=== PATIENT | female | born 1940 | race Asian ===

== ENCOUNTER 2022-04-21 12:05 | Inpatient (IN) | payer MEDICARE, OTHER ==
[~2022-04-21] VITALS: Ht 162.6 cm; Wt 50.3 kg
[2022-04-21] MEDS ORDERED: SODIUM CHLORIDE 0.9% 1,000 ML IV ONE (12:15)
[2022-04-21 12:43] LABS: BASOPHILS % 0.5 % (0.0-2.0); EOSINOPHILS % 0.6 % (0.0-5.0); HEMATOCRIT. 43.7 % (36.0-48.0); HEMOGLOBIN. 14.3 g/dL (12.0-16.0); LYMPHOCYTES % 8.1 % (20.0-50.0); MEAN CORPUSCULAR HEMOGLOBIN 30.9 pg (28.0-32.0); MEAN CORPUSCULAR VOLUME 94.4 fL (81.0-99.0); MEAN PLATELET VOLUME 6.6 fl (7.4-10.4); MONOCYTES % 7.9 % (2.0-8.0); NEUTROPHILS % 82.9 % (40.0-76.0); PLATELET 246 x1000/uL (130-400); RED BLOOD CELL COUNT 4.63 mill/uL (4.2-5.4); RED CELL DISTRIBUTION WIDTH 14.1 % (11.6-14.6)
[2022-04-21 12:48] LABS: CHLORIDE 105 mEq/L (98-107)
[2022-04-21 12:53] LABS: INR 1.1; PROTHROMBIN TIME 11.5 sec (9.6-11.0)
[2022-04-21 13:00] LABS: CREATINE KINASE 166 IU/L (26-192)
[2022-04-21 13:23] LABS: CLARITY URINE CLEAR (CLEAR); COLOR URINE YELLOW (YELLOW); KETONES URINE 2+ (NEGATIVE); LEUKOCYTE ESTERASE URINE NEGATIVE (NEGATIVE); NITRITE URINE NEGATIVE (NEGATIVE); OCCULT BLOOD URINE TRACE (NEGATIVE); PROTEIN URINE TRACE (NEGATIVE); SPECIFIC GRAVITY URINE 1.019 (1.005-1.030)
[2022-04-21] MEDS ORDERED: CLONIDINE 0.1MG TABLET PO PRN (14:30)
[2022-04-21] MEDS ORDERED: ACETAMINOPHEN 325MG TABLET PO PRN (14:30)
[2022-04-21] MEDS ORDERED: DIPHENHYDRAMINE 50MG/ML VIAL IV PRN (14:30)
[2022-04-21] MEDS ORDERED: IPRATROPIUM/ALBUTEROL 0.5-3(2.5)MG/3ML NEB HHN PRN (14:30)
[2022-04-21] MEDS ORDERED: ONDANSETRON HCL 4MG/2ML INJ IV PRN (14:30)
[2022-04-21] MEDS: ASPIRIN 81MG EC TABLET PO SCH (15:54)
[2022-04-21] MEDS ORDERED: NALOXONE HCL 0.4MG/ML VIAL IV PRN (16:45)
[2022-04-21 18:10] VITALS: BP 145/66
[2022-04-21] MEDS ORDERED: ASPI-1497 MT (19:23)
[2022-04-21 20:00] VITALS: BP 131/74
[2022-04-22] VITALS: BP 152/91
[2022-04-22 04:00] VITALS: BP 131/72
[2022-04-22 08:00] VITALS: BP 106/76
[2022-04-22] MEDS: ASPIRIN 81MG EC TABLET PO SCH (09:09)
[2022-04-22 11:15] LABS: HEMATOCRIT. 38.6 % (36.0-48.0); HEMOGLOBIN. 12.9 g/dL (12.0-16.0); MEAN CORPUSCULAR HEMOGLOBIN 31.1 pg (28.0-32.0); MEAN CORPUSCULAR VOLUME 93.4 fL (81.0-99.0); MEAN PLATELET VOLUME 6.8 fl (7.4-10.4); PLATELET 247 x1000/uL (130-400); RED BLOOD CELL COUNT 4.13 mill/uL (4.2-5.4); RED CELL DISTRIBUTION WIDTH 13.7 % (11.6-14.6)
[2022-04-22 11:24] LABS: CHLORIDE 101 mEq/L (98-107)
[2022-04-22] MEDS ORDERED: APIXABAN 5 MG TABLET PO SCH (11:45)
[2022-04-22 11:56] LABS: T4 FREE 1.39 ng/dL (0.76-1.46)
[2022-04-22 12:00] VITALS: BP 146/83
[2022-04-22] MEDS ORDERED: POTASSIUM CHLORIDE 20MEQ TABLET SR PO NR (12:15)
[2022-04-22] MEDS: HYDROCODONE/ACETAMINOPHEN 5/325MG TABLET PO PRN ×2 (13:08→21:32)
[2022-04-22 13:22] LABS: PLATELET ESTIMATE NORMAL
[2022-04-22 16:00] VITALS: BP 142/79
[2022-04-22 20:00] VITALS: BP 130/68
[2022-04-22] MEDS: METOPROLOL TARTRATE 25MG TABLET PO SCH (21:31)
[2022-04-23] VITALS (7 sets, daily range): BP systolic 85–150; BP diastolic 25–90
[2022-04-23] MEDS: ASPIRIN 81MG EC TABLET PO SCH (08:47)
[2022-04-23] MEDS: METOPROLOL TARTRATE 25MG TABLET PO SCH (08:47)
[2022-04-23] MEDS ORDERED: POTASSIUM CHLORIDE 20MEQ TABLET SR PO SCH (11:00)
[2022-04-23 11:24] LABS: BASOPHILS % 0.8 % (0.0-2.0); EOSINOPHILS % 4.5 % (0.0-5.0); HEMATOCRIT. 38.3 % (36.0-48.0); HEMOGLOBIN. 12.6 g/dL (12.0-16.0); MEAN CORPUSCULAR HEMOGLOBIN 31.3 pg (28.0-32.0); MEAN CORPUSCULAR VOLUME 94.8 fL (81.0-99.0); MEAN PLATELET VOLUME 6.8 fl (7.4-10.4); MONOCYTES % 10.5 % (2.0-8.0); NEUTROPHILS % 73.2 % (40.0-76.0); PLATELET 248 x1000/uL (130-400); RED BLOOD CELL COUNT 4.04 mill/uL (4.2-5.4); RED CELL DISTRIBUTION WIDTH 13.9 % (11.6-14.6)
[2022-04-23 13:07] LABS: CHLORIDE 103 mEq/L (98-107)
[2022-04-23] MEDS: AMLODIPINE 2.5MG TABLET PO SCH ×2 (15:07→16:42)
[2022-04-23 18:23] LABS: BASOPHILS % 0.9 % (0.0-2.0); EOSINOPHILS % 4.2 % (0.0-5.0); HEMATOCRIT. 38.9 % (36.0-48.0); HEMOGLOBIN. 13.1 g/dL (12.0-16.0); LYMPHOCYTES % 12.7 % (20.0-50.0); MEAN CORPUSCULAR HEMOGLOBIN 31.5 pg (28.0-32.0); MEAN CORPUSCULAR VOLUME 93.3 fL (81.0-99.0); MEAN PLATELET VOLUME 6.7 fl (7.4-10.4); MONOCYTES % 8.6 % (2.0-8.0); NEUTROPHILS % 73.6 % (40.0-76.0); PLATELET 263 x1000/uL (130-400); RED BLOOD CELL COUNT 4.17 mill/uL (4.2-5.4); RED CELL DISTRIBUTION WIDTH 14.2 % (11.6-14.6)
[2022-04-23 18:35] LABS: CHLORIDE 105 mEq/L (98-107)
[2022-04-24] VITALS: BP 102/44
[2022-04-24 04:00] VITALS: BP 103/59
[2022-04-24 05:57] LABS: BASOPHILS % 0.8 % (0.0-2.0); EOSINOPHILS % 4.4 % (0.0-5.0); HEMATOCRIT. 36.2 % (36.0-48.0); HEMOGLOBIN. 12.4 g/dL (12.0-16.0); LYMPHOCYTES % 13.8 % (20.0-50.0); MEAN CORPUSCULAR HEMOGLOBIN 31.5 pg (28.0-32.0); MEAN CORPUSCULAR VOLUME 92.2 fL (81.0-99.0); MEAN PLATELET VOLUME 6.9 fl (7.4-10.4); PLATELET 267 x1000/uL (130-400); RED BLOOD CELL COUNT 3.93 mill/uL (4.2-5.4)
[2022-04-24 08:00] VITALS: BP 120/68
[2022-04-24] MEDS: ASPIRIN 81MG EC TABLET PO SCH (08:47)
[2022-04-24] MEDS: AMLODIPINE 2.5MG TABLET PO SCH ×2 (08:47→16:03)
[2022-04-24] MEDS: HYDROCODONE/ACETAMINOPHEN 5/325MG TABLET PO PRN ×2 (08:47→21:23)
[2022-04-24 09:02] LABS: CHLORIDE 104 mEq/L (98-107)
[2022-04-24 12:00] VITALS: BP 100/59
[2022-04-24] MEDS ORDERED: AMLO2.5T45 PO (12:47)
[2022-04-24] MEDS ORDERED: APIX5TAB PO (12:47)
[2022-04-24 16:00] VITALS: BP 109/69
[2022-04-24 20:00] VITALS: BP 117/70
[2022-04-25] VITALS: BP 119/68
[2022-04-25 04:00] VITALS: BP 135/55
[2022-04-25 08:00] VITALS: BP 125/56
[2022-04-25] MEDS: HYDROCODONE/ACETAMINOPHEN 5/325MG TABLET PO PRN (09:11)
[2022-04-25] MEDS: ASPIRIN 81MG EC TABLET PO SCH (09:11)
[2022-04-25] MEDS: AMLODIPINE 2.5MG TABLET PO SCH ×2 (09:11→17:00)
[2022-04-25 12:00] VITALS: BP 102/58
[2022-04-25 16:00] VITALS: BP 145/76
[2022-04-25 16:59] VITALS: BP 145/76
== END 2022-04-25 17:32 | DRG 74 ==
LOC: ER 12:19 → 7EST 13:29 → EDBEDREQTM 13:55 → EDBEDREQ 13:55 → ENRESERV 16:58
PROVIDERS: ADMIT Internal Medicine; ATTEND Internal Medicine
DX: G90.8 Other disorders of autonomic nervous system (principal); S42.201A Unspecified fracture of upper end of right humerus, initial encounter for closed fracture; D72.829 Elevated white blood cell count, unspecified; I10 Essential (primary) hypertension; Z20.822 Contact with and (suspected) exposure to COVID-19; I25.10 Atherosclerotic heart disease of native coronary artery without angina pectoris; I44.1 Atrioventricular block, second degree; I48.0 Paroxysmal atrial fibrillation; Z95.1 Presence of aortocoronary bypass graft; Z96.653 Presence of artificial knee joint, bilateral; Z90.710 Acquired absence of both cervix and uterus; Z79.82 Long term (current) use of aspirin; W19.XXXA Unspecified fall, initial encounter; Y93.89 Activity, other specified; Y92.89 Other specified places as the place of occurrence of the external cause; Y99.8 Other external cause status
CPT/HCPCS: 36415; 70551; 71045; 73030; 73060; 73200; 80048; 80053; 81003; 82550; 82962; 83735; 83880; 84439; 84443; 84481; 84484; 85025; 85379; 87426; 93005; 93306; 93880; 93970; 97162; 97530; 99291; A4565; J7030